=== PATIENT | female | born 1995 | race Caucasian/White ===

== ENCOUNTER 2017-11-18 20:58 | Emergency (ER) | payer OTHER ==
--- NOTE | 2017-11-18 21:24 | EDPHY ---
H & P Stated Complaint: BEING WORKED UP FOR H-PYLORI, NAUSEA NO VOMITING Source: Patient Exam Limitations: No limitations - Personal History LMP (Females 10-55): Now Current Tetanus/Diphtheria Vaccine: Yes Current Tetanus Diphtheria and Acellular Pertussis (TDAP): Yes - Medical/Surgical History Hx Asthma: No Hx Chronic Respiratory Disease: No Hx Diabetes: No Hx Cardiac Disease: No Hx Renal Disease: No Hx Cirrhosis: No Hx Alcoholism: No Hx HIV/AIDS: No Hx Splenectomy or Spleen Trauma: No - Social History Smoking Status: Never smoked Time Seen by Provider: 11/18/17 21:23 HPI/ROS: HPI: This is a 21-year-old female who presents with Chief Complaint: BEING WORKED UP FOR H-PYLORI, NAUSEA, NO VOMITING Location: Epigastric Quality: Burning pain Duration: 10 days Signs and Symptoms: no fever, + nausea, no vomiting, no hematemesis, no blood in stool, no abdominal bloating, no diarrhea, no back pain, no urinary symptoms , no vaginal discharge, no indigestion, no chest pain, no shortness of breath Timing: Daily, worse after eating Severity: Moderate Context: Patient is a local [employer] student presents with complaints of epigastric burning pain, nonradiating in nature, accompanied by fullness and bloating times 10 days. Patient was seen by the [facility] today and had laboratory studies performed including H pylori. She reports that she felt worse after seeing the primary care provider and called the office. Currently menstruating. Had a bowel movement yesterday. Denies NSAID use/steroid use. Denies fever/vomiting/diarrhea. She reports that she has some mild menstrual cramps that are typical for her but feels that this pain is different. Patient ate breakfast this morning but was unable to eat lunch or dinner. Modifying Factors: None Comment: ROS: see HPI Constitutional: No fever, no chills, no weight loss Eyes: No blurred vision Respiratory: No shortness of breath, no cough Cardiovascular: No chest pain, no palpitations Gastrointestinal: No nausea, no vomiting, no diarrhea, no hematemesis, no blood in stool Genitourinary: No dysuria, no blood in urine Extremities: No myalgias, no edema Neurologic: No weakness, no numbness Skin: No rashes, no petechiae Hematologic: No bruising, no bleeding MEDICAL/SURGICAL/SOCIAL HISTORY: Medical history: Generally healthy. Does not take any regular medications. Surgical history: Denies Social history: Family history noncontributory. CONSTITUTIONAL: Extremely well-appearing, polite and cooperative, young adult white female, awake and alert, no obvious distress HEENT: Atraumatic and normocephalic, PERRL, EOMI. Nares patent; no rhinorrhea; no nasal mucosal edema. Tympanic membranes clear. Oropharynx clear, no exudate and moist pink mucosa. Airway patent. No lymphadenopathy. No meningismus. Cardiovascular: Normal S1/S2, regular rate, regular rhythm, without murmur rub or gallop. PULMONARY/CHEST: Symmetrical and nontender. Clear to auscultation bilaterally. Good air movement. No accessory muscle usage. ABDOMEN: Soft, nondistended, mild epigastric tenderness, negative Hyman sign, no rebound, no guarding, no peritoneal signs, no masses or organomegaly. No CVAT. Hypoactive bowel sounds x4. EXTREMITIES: 2/2 pulses, strength 5/5, no deformities, no clubbing, no cyanosis or edema. NEUROLOGICAL: no focal neuro deficits. GCS 15. SKIN: Warm and dry, no erythema. no rash. Good capillary refill. (Kari Bundy) Constitutional: Initial Vital Signs Temperature (C) 37.0 C 11/18/17 21:01 Heart Rate 68 11/18/17 21:01 Respiratory Rate 18 11/18/17 21:01 Blood Pressure 128/73 H 11/18/17 21:01 O2 Sat (%) 97 11/18/17 21:01 O2 Delivery Mode Room Air Allergies/Adverse Reactions: ketorolac [From Toradol] Allergy (Verified 11/18/17 21:05) Home Medications: Medication Instructions Recorded Ondansetron Odt [Zofran Odt 4 mg 4 mg PO Q4 PRN #12 tab 11/18/17 (*)] Pantoprazole Sodium [Protonix 40mg 40 mg PO DAILY #10 tab 11/18/17 (*)] Medical Decision Making ED Course/Re-evaluation: Labs, IV fluids, IV medications, oral medications, right upper quadrant ultrasound to evaluate for gallbladder disease, KUB Given 1 L normal saline, IV Pepcid, GI cocktail upon arrival Abdomen soft with minimal epigastric tenderness; doubt surgical abdomen and doubt female abdominal pain etiology 2250: Labs reviewed. No signs of leukocytosis/anemia/PIERRE/elevated LFTs/ electrolyte imbalance/. Given PO Bentyl and Zofran Abdominal x-ray my read shows moderate stool burden. No signs of free air/ perforation Right upper quadrant ultrasound shows no signs of cholecystitis; cholelithiasis. 2302: Reassessed patient. Abdomen soft and nontender. Doubt surgical abdomen. This patient was seen under the supervision of my secondary supervising physician. I evaluated care for this patient independently. Discussed this patient with Dr. Humphrey who did not see the patient. (Kari Bundy) Differential Diagnosis: Abdominal pain including but not limited to appendicitis, cholecystitis, gastritis and urinary tract infection. (Kari Bundy) Other Provider: The patient was evaluated and managed by the Physician Floor Care Specialist. My co- signature indicates that I have reviewed this chart and I agree with the findings and plan of care as documented. I am the secondary supervising physician. (Liliane Page) - Data Points Laboratory Results: Laboratory Results 11/18/17 21:48 11/18/17 21:48 Medications Given: Discontinued Medications Al Hydroxide/Mg Hydroxide (Maalox Susp) 30 ml PO ONCE ONE Stop: 11/18/17 21:30 Last Admin: 11/18/17 21:52 Dose: 30 ml Dicyclomine HCl (Bentyl) 20 mg PO EDNOW ONE Stop: 11/18/17 23:03 Last Admin: 11/18/17 23:06 Dose: 20 mg Hyoscyamine Sulfate (Levsin, Hyomax-Sl) 0.25 mg PO ONCE ONE Stop: 11/18/17 21:30 Last Admin: 11/18/17 21:52 Dose: 0.25 mg Sodium Chloride (Ns) 1,000 mls @ 0 mls/hr IV EDNOW ONE; Wide Open PRN Reason: Protocol Stop: 11/18/17 21:30 Last Admin: 11/18/17 21:49 Dose: 1,000 mls Famotidine/Sodium Chloride (Pepcid 20 Mg (Premix)) 50 mls @ 200 mls/hr IV EDNOW ONE Stop: 11/18/17 21:43 Last Admin: 11/18/17 21:52 Dose: 50 mls Lidocaine (Lidocaine 2% Viscous) 15 ml PO ONCE ONE Stop: 11/18/17 21:30 Last Admin: 11/18/17 21:52 Dose: 15 ml Ondansetron HCl (Zofran) 4 mg IVP EDNOW ONE Stop: 11/18/17 21:30 Last Admin: 11/18/17 21:49 Dose: 4 mg Ondansetron HCl (Zofran Odt) 4 mg PO EDNOW ONE Stop: 11/18/17 23:03 Last Admin: 11/18/17 23:06 Dose: 4 mg Departure - Departure Disposition: Home, Routine, Self-Care Clinical Impression: PUD (peptic ulcer disease), GERD (gastroesophageal reflux disease) Condition: Good Instructions: Peptic Ulcer (ED), Diet for Stomach Ulcers and Gastritis (ED) Additional Instructions: Consume a minimum of 8-10 glasses of water or electrolyte fluid replacement drinks that include Gatorade, Powerade, Pedialyte. Eat a bland diet for the next 48 hours and then slowly advance as tolerated. Avoid spicy or fried foods. Eat small meals frequently rather than large meals. Take Zofran 1 tab every 4 hours as needed for nausea, vomiting. Take [id number] MiraLax daily as needed for constipation. Take Protonix daily for GERD like symptoms. Follow-up with primary care provider for the results of your H pylori test. If symptoms persist, many referral to Gastroenterology for EGD outpatient. Return to the ER immediately if you experience new, continued or worsening abdominal pain, fevers/chills, inability to tolerate oral intake, new pain, or any other symptoms that concern you. Referrals: Lynnette Cervantes MD [Primary Care Provider] - As per Instructions Prescriptions: Ondansetron Odt [Zofran Odt 4 mg (*)] 4 mg PO Q4 PRN #12 tab PRN Reason: Nausea/Vomiting, Use 1st Pantoprazole Sodium [Protonix 40mg (*)] 40 mg PO DAILY #10 tab
[2017-11-18] MEDS ORDERED: HYOSCYAMINE SULFATE 0.125 MG TAB PO ONE (21:29)
[2017-11-18] MEDS ORDERED: NS 1,000 ML IV ONE (21:29)
[2017-11-18] MEDS ORDERED: ONDANSETRON 4 MG/2 ML VIAL IVP ONE (21:29)
[2017-11-18] MEDS ORDERED: MAG HYDROX/AL HYDROX/SIMETH 30 ML UDCUP PO ONE (21:29)
[2017-11-18] MEDS ORDERED: FAMOTIDINE 20 MG/NACL 50 ML IV ONE (21:29)
[2017-11-18] MEDS ORDERED: LIDOCAINE 2% VISCOUS 15 ML UDCUP PO ONE (21:29)
[2017-11-18] MEDS ORDERED: HYOSCYAMINE SULFATE 0.125 MG TAB ONE (21:37)
[2017-11-18 22:15] LABS: PLATELET COUNT 224 10^3/uL (150-400)
[2017-11-18] MEDS ORDERED: ONDANSETRON DISINTEGRATING 4 MG TAB PO ONE (23:02)
[2017-11-18] MEDS ORDERED: DICYCLOMINE 10 MG CAP PO ONE (23:02)
[2017-11-18 23:11] VITALS: BP 101/72
== END 2017-11-18 23:16 | disposition home or self-care (01) ==
DX: K27.9 Peptic ulcer, site unspecified, unspecified as acute or chronic, without hemorrhage or perforation (principal); K21.9 Gastro-esophageal reflux disease without esophagitis; E86.9 Volume depletion, unspecified
CPT/HCPCS: 96365; J2405